=== PATIENT | female | born 1965 | race Caucasian/White ===

== ENCOUNTER 2020-02-27 11:48 | Emergency (ER) | payer OTHER, SELFPAY ==
[2020-02-27 11:48] VITALS: BP 151/82; PULSE 73; RESP 16; TEMP 36.5; O2SAT 100
--- NOTE | 2020-02-27 12:15 | DI.RAD_ITS ---
EXAM: XR KNEE LT 4V+ CLINICAL HISTORY: ski accident, lateral pain. TECHNIQUE: 2D digital imaging was performed. COMPARISON: CR,XR XR KNEE RT 4V+ from 02/27/2020 FINDINGS: BONES: There is a mildly impacted fracture of the lateral tibial plateau. The medial tibial plateau appears intact.. The distal femur, patella and proximal fibula appear intact. No bony destructive lesion is seen. JOINTS: The knee is normally aligned. There is a large hemarthrosis. SOFT TISSUE: Normal. IMPRESSION: Mildly depressed lateral tibial plateau fracture. DATA REPOSITORY: RADIATION DOSE DELIVERED:
--- NOTE | 2020-02-27 12:15 | DI.RAD_ITS ---
EXAM: XR KNEE RT 4V+ CLINICAL HISTORY: ski accident. TECHNIQUE: 2D digital imaging was performed. COMPARISON: No exams were available for comparison FINDINGS: BONES: No acute fracture is present. No bony destructive lesion is seen. JOINTS: The knee is normally aligned. There is a question of a small suprapatellar effusion. There are minimal patellofemoral degenerative changes. SOFT TISSUE: Normal. IMPRESSION: Question of a small joint effusion. DATA REPOSITORY: RADIATION DOSE DELIVERED:
--- NOTE | 2020-02-27 12:55 | DI.VRAD_ITS ---
PROCEDURE INFORMATION: Exam: XR Right Knee Exam date and time: 02/27/2020 12:21 PM Age: 54 years old Clinical indication: Other: Ski accident TECHNIQUE: Imaging protocol: XR Right knee. Views: 4 or more views. COMPARISON: No relevant prior studies available. FINDINGS: Bones/joints: Normal. Soft tissues: Normal. Other findings: Tiny effusion. IMPRESSION: Tiny right knee effusion. The right knee is otherwise normal. Dictated and Authenticated by: Adrienne Donaldson MD. Ordering:PANDA Fishman MD
--- NOTE | 2020-02-27 13:00 | DI.CT_ITS ---
EXAM: CT LOWER EXTREMITY LT WO CLINICAL HISTORY: Question tibial plateau fracture on plain film. TECHNIQUE: Imaging Protocol: Axial computed tomography images with coronal and sagittal reformatted images were created and reviewed. COMPARISON: CR,XR XR KNEE LT 4V+ from 02/27/2020 CR,XR XR KNEE RT 4V+ from 02/27/2020 FINDINGS: Bones: There is a fracture of the lateral tibial plateau. There is some impaction, greater posterio rly. The there is depression of several millimeters. The medial tibial plateau appears intact. The tibial spines do not appear to be involved. The patella and distal femur appear intact. A hemarthr osis is seen. The proximal fibula is intact. There is soft tissue thickening adjacent to the medial femoral condyle in the expected location of the medial collateral ligament which could indicate a te ar. IMPRESSION: Mildly depressed lateral tibial plateau fracture. Question of a tear of the proximal medial collateral ligament. RADIATION DOSE DELIVERED: 229.86mGy.cm Total DLP 229.86mGy.cm Total DLP DATA REPOSITORY: All CT scans at this facility are submitted to the National Radiology Data Registry (NRDR) Dose Index Registry (DIR) with the [employer] ([employer]). RADIATION OPTIMIZATION: All CT scans at this facility use at least one of these dose optimization te chniques: automated exposure control; mA and/or kV adjustment per patient size (includes targeted exa ms where dose is matched to clinical indication); or iterative reconstruction.
--- NOTE | 2020-02-27 13:04 | DI.VRAD_ITS ---
PROCEDURE INFORMATION: Exam: XR Left Knee Exam date and time: 02/27/2020 12:21 PM Age: 54 years old Clinical indication: Other: Ski accident TECHNIQUE: Imaging protocol: XR Left knee. Views: 4 or more views. COMPARISON: No relevant prior studies available. FINDINGS: Bones/joints: Moderate knee effusion. Sclerosis of lateral tibial plateau suspicious for nondisplaced tibial plateau fracture. CT would be helpful in further evaluation. Soft tissues: Normal. IMPRESSION: 1. Findings suspicious for left lateral tibial plateau fracture. CT recommended. Dictated and Authenticated by: Adrienne Donaldson MD. Ordering:PANDA Fishman MD
--- NOTE | 2020-02-27 13:13 | W.ED.GENAD ---
Discharge Plan Disposition Patient Disposition: HOME Condition: Stable Discharge Details Clinical Impression: Fracture, tibial plateau, Tear of MCL (medial collateral ligament) of knee Primary Care Provider: Unknown,Unknown ED Provider: Kye Greenwood Home Meds and New Rx's Prescriptions: No Action No Known Home Meds RF: 0 Discharge Instructions Instructions: Leg Fracture (ED), Knee Immobilizer (ED) Additional Instructions: CT imaging reveals a lateral tibial plateau fracture, and at least a partial tear of the proximal medial collateral ligament. As we discussed, you will seek orthopedic care in [place]. Wear the knee immobilizer, use crutches, no weightbearing. Rest, elevate, cool compresses every 2 hours for 20 minutes. You have declined any prescription for pain medication, take [id number] Tylenol and/or Motrin after a for discomfort. Please watch for new or worsening symptoms and return to the ER for any concerns. I would like you to contact your orthopedic team Saturday morning for prompt outpatient reevaluation and assessment. Discharge Data Discharge Date/Time-TO BE ENTERED AT DEPARTURE: 02/27/20 14:42 Medical Decision Making 54-year-old female, no significant past medical history, presents having had a low-speed skiing accident. Knees with valgus stress, subsequently falling to the ground striking both knees. Clinically right knee seems to be stable, no real discomfort to palpation. On the other hand her left knee has discomfort and possible mild laxity. We will initiate x-ray of both knees. Patient declines any analgesia. X-ray of right knee read by radiology as tiny right knee effusion. The knee is otherwise normal. Left knee x-ray read as suspicious for a left lateral tibial plateau fracture. CT recommended. CT left lower extremity to be obtained. CT imaging of left lower extremity reveals slightly comminuted intra-articular fracture of lateral tibial plateau with minimal depression of posterior fragments. Moderate lipohemarthrosis. At least partial tearing of the proximal medial collateral ligament. Discussed CT findings with patient. Discussed treatment options. Patient plans to return home and be seen by orthopedics there. We will place the patient into a left leg immobilizer, crutches with teaching. She was able to use his crutches and knee immobilizer well, ambulated steadily. We discussed the importance of nonweightbearing. She will be given a CD with her x-rays and CT imaging. She will contact her orthopedic team on Saturday. Otherwise return sooner for new or worsening symptoms. Declines prescription for analgesia, will use [id number] Tylenol and/or Motrin. Upon discharge patient has no additional questions or concerns. HPI General Mode of arrival: wheelchair. Date/Time Provider Initiated Documentation: 02/27/20 11:48. Limitations to Documentation: no limitations. Information obtained by: patient. HPI Narrative: This is a 54-year-old female who denies any significant past medical history. She states that she was skiing at [email or web address], had completed her run, was going at low speed to turn back onto the ski lift when she states that her skis became stuck causing her skis to spread apart, her knees were bending inward and then she fell to the ground striking both of her knees. She states that she heard and felt a pop in both of her knees. Initially she had pain in both of her knees and has not tried to ambulate since the fall. Now she states that her right knee really does not have any pain at all but her left knee continues to have moderate pain at rest severe with movement. She denies any other injury. She was wearing a helmet. She denies numbness, tingling, weakness. Patient lives in [place] and if anything is abnormal would likely want to follow-up with her medical team closer to home. She has not taken any medication for her discomfort, does not want any analgesia now. Related Data Home Medications Medication Instructions Recorded Confirmed Unknown [No Known Home Meds] 02/27/20 02/27/20 Allergies Allergy/AdvReac Type Severity Reaction Status Date / Time No Known Allergies Allergy Unverified 02/27/20 11:56 General Stated Complaint: Orthopedic VITOR: 4 Review of Systems Constitutional Constitutional: Denies headache(s) and Denies weakness ENT Ears, Nose, Mouth, and Throat: Denies headache(s) Cardiovascular Cardiovascular: Denies chest pain and Denies dyspnea Respiratory Respiratory: Denies cough and Denies dyspnea Gastrointestinal Gastrointestinal: Denies nausea and Denies vomiting Musculoskeletal Musculoskeletal: Reports arthralgias, Reports joint swelling, Denies numbness, Reports stiffness and Denies tingling Integumentary/Breasts Skin/Breast: Denies rash Neurologic Neurologic: Denies headache(s), Denies numbness, Denies tingling and Denies weakness [facility] Social History Smoking/Tobacco Use Status: Never Smoking risk assessment performed?: Yes Substance use type: does not use Do you feel safe at home: Yes Do you feel safe in your relationship?: Yes Exam Const General: cooperative, healthy appearing, comfortable and no acute distress Orientation: alert, awake and oriented x3 HENMT Head: normal to inspection, normocephalic and atraumatic Eyes General: appearance normal, both eyes and all related structures Conjunctivae: conjunctivae normal Sclera: sclerae normal Neck Neck: normal visual inspection, full ROM, no meningeal signs, trachea midline and supple Resp Effort & Inspection: normal respiratory effort and able to speak in complete sentences Cardio Rate: regular rate Rhythm: regular rhythm Skin General skin exam: no rashes or lesions noted Neuro General: patient alert, patient awake, moves all extremities and no focal motor deficits Cognition: normal cognition Speech: speech normal Motor: muscle tone normal throughout Sensory Exam: no sensory deficits noted Extrem General: capillary refill normal Right lower extremity: normal to inspection, full ROM, normal capillary refill and knee Details: normal to inspection, normal ROM and knee ligament exam normal; no tenderness, no swelling, no ecchymosis, no crepitus and no deformity Left lower extremity: normal capillary refill and knee Details: abnormal to inspection, tenderness, swelling (Diffuse mild anterior), abnormal ROM (Full extension, limited flexion) and knee ligament exam abnormal Details: valgus stress test Details: both pain and laxity noted (Significant pain, question of minimal laxity) Other: Bilateral hip, ankle, foot unremarkable. Neuro, vascular, tendon intact. Normal capillary refill and dorsalis pedal pulses. Psych Appearance: grossly normal Mental Status: mental status grossly normal Course Vital Signs Vital signs: Vital Signs Temperature 36.5 C 02/27/20 11:48 Pulse 73 02/27/20 11:48 Respiratory Rate 16 02/27/20 11:48 Blood Pressure 151/82 H 02/27/20 11:48 Pulse Oximetry 100 02/27/20 11:48 Temperature 36.5 C 02/27/20 11:48 Temperature Source Skin 02/27/20 11:48 Pulse 73 02/27/20 11:48 Respiratory Rate 16 02/27/20 11:48 Respiratory Effort Non-Labored 02/27/20 11:48 Blood Pressure 151/82 H 02/27/20 11:48 Blood Pressure Position Supine 02/27/20 11:48 Pulse Oximetry 100 02/27/20 11:48 Oxygen Delivery Method Room Air 02/27/20 11:48 Oxygen Flow Rate 0 02/27/20 11:48 Pain Level 8 02/27/20 11:48
--- NOTE | 2020-02-27 13:39 | DI.VRAD_ITS ---
PROCEDURE INFORMATION: Exam: CT Left Lower Extremity With Contrast, Knee Exam date and time: 02/27/2020 1:26 PM Age: 54 years old Clinical indication: Pain; Knee; Left TECHNIQUE: Imaging protocol: CT of the Left lower extremity with intravenous contrast was performed. Exam focused on the knee. COMPARISON: CR XR KNEE LT 4V+ 02/27/2020 12:40 PM FINDINGS: Bones/joints: Moderate left knee effusion with lipohemarthrosis. Comminuted intra-articular fracture of left lateral tibial plateau. Very slight depression posterior fracture fragments by approximately 2 mm, best demonstrated the sagittal reformatted series 7, image 26. No other fracture identified. Thickening of the proximal medial collateral ligament consistent with at least partial tearing. Soft tissues: Normal. IMPRESSION: 1. Slightly comminuted intra-articular fracture of lateral tibial plateau with minimal depression of posterior fragments. 2. Moderate lipohemarthrosis. 3. At least partial tearing of the proximal medial collateral ligament. Dictated and Authenticated by: Adrienne Donaldson MD. Ordering:PANDA Fishman MD
[2020-02-27 14:23] VITALS: BP 125/75; PULSE 80; RESP 15; O2SAT 99
--- NOTE | 2020-02-27 14:25 | NUR.NOTE ---
fitted with crutches and able to ambulate to bathroom and back to room independently
== END 2020-02-27 14:42 | disposition home or self-care (01) ==
PROVIDERS: Emergency Provider Physician Assistant
DX: S82.142A Displaced bicondylar fracture of left tibia, initial encounter for closed fracture (principal); S83.412A Sprain of medial collateral ligament of left knee, initial encounter; V00.321A Fall from snow-skis, initial encounter; Y93.23 Activity, snow (alpine) (downhill) skiing, snowboarding, sledding, tobogganing and snow tubing
CPT/HCPCS: 29505; 99284; 73564; 73700